=== PATIENT | male | born 1960 | race African-American/Black ===

== ENCOUNTER 2017-06-06 12:07 | Emergency (ER) | payer MEDICAID ==
[~2017-06-06] VITALS: Ht 167.6 cm; Wt 114.5 kg
[2017-06-06 16:42] VITALS: BP 153/92
== END 2017-06-06 16:35 | disposition home or self-care (01) ==
LOC: ED 12:07
DX: M79.602 Pain in left arm (principal); I10 Essential (primary) hypertension; E11.9 Type 2 diabetes mellitus without complications
CPT/HCPCS: J1885; J2270

== ENCOUNTER 2017-11-03 07:10 | Inpatient (IN) | payer MEDICAID ==
[~2017-11-03] VITALS: Ht 177.8 cm; Wt 112.0 kg
[2017-11-03 08:14] LABS: BASOPHIL % 0.5 % (0-2); PLATELET COUNT 285 x10^3mcL (130-400); RED CELL DISTRIBUTION WIDTH 15.2 % (11.5-14.5)
[2017-11-03 09:02] LABS: ALKALINE PHOSPHATASE 57 U/L (46-116); ALT/SGPT 17 U/L (16-63); AMYLASE 29 U/L (25-115); AST/SGOT 22 U/L (15-37); BILIRUBIN TOTAL 0.5 mg/dL (0.20-1.00); CALCIUM 8.8 mg/dL (8.5-10.1); CARBON DIOXIDE 24.3 mmol/L (21-32); CHLORIDE SERUM 99 mmol/L (98-107); CHOLESTEROL 191 mg/dL (<200); CREATININE SERUM 1.2 mg/dL (0.7-1.3); GFR1 > 60 mL/min; GLUCOSE SERUM 351 mg/dL (74-106); HDL CHOLESTEROL 37 mg/dL (40-60); LIPASE 111 IU/L (73-393); MAGNESIUM 1.8 mg/dL (1.8-2.4); POTASSIUM SERUM 4.6 mmol/L (3.5-5.1); SODIUM SERUM 134 mmol/L (136-145); TOTAL PROTEIN, SERUM 7.5 g/dL (6.4-8.2)
[2017-11-03 09:36] LABS: microscopic required? NO
[2017-11-03 09:57] LABS: urine erythrocyte NEGATIVE (NEGATIVE)
[2017-11-03 10:33] LABS: AMPHETAMINE QUAL UR NONE DETECTED (NEG <=1000)
[2017-11-03 11:45] VITALS: Ht 177.8 cm; Wt 112.0 kg
[2017-11-03 11:45] LABS: CHOLESTEROL/HDL RATIO 5.3; PHOSPHOROUS 3.3 mg/dL (2.5-4.9)
[2017-11-03 11:49] LABS: T3 TOTAL 0.93 ng/mL
[2017-11-03 11:55] LABS: FREE T4 1.23 ng/dL (0.76-1.46)
[2017-11-03 12:43] VITALS: BP 106/70
[2017-11-03 18:00] VITALS: BP 130/82
[2017-11-03 21:16] VITALS: BP 139/90
[2017-11-04 05:43] VITALS: BP 115/65
[2017-11-04 06:25] LABS: PLATELET COUNT 242 x10^3mcL (130-400)
[2017-11-04 06:28] LABS: CALCIUM 9.2 mg/dL (8.5-10.1); CARBON DIOXIDE 25.4 mmol/L (21-32); CHLORIDE SERUM 102 mmol/L (98-107); CREATININE SERUM 1.2 mg/dL (0.7-1.3); GFR1 > 60 mL/min; GLUCOSE SERUM 304 mg/dL (74-106); PHOSPHOROUS 3.2 mg/dL (2.5-4.9); POTASSIUM SERUM 4.4 mmol/L (3.5-5.1); SODIUM SERUM 135 mmol/L (136-145)
[2017-11-04 06:50] LABS: BASOPHIL % 0 % (0-2); RED CELL DISTRIBUTION WIDTH 14.9 % (11.5-14.5)
[2017-11-04 09:20] VITALS: BP 150/95
[2017-11-04] MEDS ORDERED: METFORMIN HCL500 MG PO (13:39)
[2017-11-04 13:58] VITALS: BP 133/90
== END 2017-11-04 14:20 | disposition home or self-care (01) | DRG 203 ==
LOC: ED 07:10 → DU 10:53
PROVIDERS: Emergency Medicine; Family Medicine
DX: M94.0 Chondrocostal junction syndrome [Tietze] (principal); E44.0 Moderate protein-calorie malnutrition; E11.65 Type 2 diabetes mellitus with hyperglycemia; Z68.41 Body mass index [BMI] 40.0-44.9, adult; I10 Essential (primary) hypertension; E78.5 Hyperlipidemia, unspecified; Z83.3 Family history of diabetes mellitus
CPT/HCPCS: 36600; 82962; 83880; 84439; J1815; J2930; J7030; J7613; J7644; Q0092

== ENCOUNTER 2019-12-31 10:37 | Emergency (ER) | payer MEDICAID ==
[~2019-12-31] VITALS: Ht 167.6 cm; Wt 108.9 kg
[~2019-12-31 10:37] MED LIST: METFORMIN HCL500 MG PO
[2019-12-31 10:57] VITALS: Ht 167.6 cm; Wt 108.9 kg
[2019-12-31 11:52] LABS: BASOPHIL % 1.9 % (0-2); PLATELET COUNT 257 x10^3mcL (130-400); RED CELL DISTRIBUTION WIDTH 14.2 % (11.5-14.5)
[2019-12-31 11:56] LABS: CALCIUM 9.3 mg/dL (8.5-10.1); CARBON DIOXIDE 29.1 mmol/L (21-32); CREATININE SERUM 1.6 mg/dL (0.7-1.3); POTASSIUM SERUM 4.1 mmol/L (3.5-5.1)
[2019-12-31 12:00] LABS: ALBUMIN 3.4 g/dL (3.4-5.0); BILIRUBIN TOTAL 0.4 mg/dL (0.20-1.00); TOTAL PROTEIN, SERUM 8.1 g/dL (6.4-8.2)
[2019-12-31 13:16] LABS: UA SPECIFIC GRAVITY >=1.030 (1.005-1.035); microscopic required? YES; urine erythrocyte NEGATIVE (NEGATIVE)
[2019-12-31 14:14] VITALS: BP 135/84
== END 2019-12-31 14:14 | disposition home or self-care (01) ==
LOC: ED 10:37
PROVIDERS: Emergency Medicine
DX: E86.0 Dehydration (principal); I10 Essential (primary) hypertension; F41.9 Anxiety disorder, unspecified; R20.0 Anesthesia of skin
CPT/HCPCS: 82962; J7030; Q0092